=== PATIENT | male | born 1960 | race Caucasian/White ===

== ENCOUNTER → 2017-11-29 | Outpatient (CLI) | payer OTHER ==
[2017-11-29 19:15] LABS: BASO # 0.1 10^3/uL (0.0-0.2); BASO % 0.8 % (0.0-1.0); EOS # 0.2 10^3/uL (0.0-0.50); EOS % 1.6 % (0.0-3.0); HEMATOCRIT 41.3 % (42.0-52.0); IMMATURE GRANULOCYTE % 0.6 % (0-3.0); LYMPH # 3.6 10^3/uL (1.5-4.5); LYMPH % 34.6 % (24.0-44.0); MEAN CORPUSCULAR HGB CONC 33.9 g/dl (32.0-36.5); MEAN CORPUSCULAR VOLUME 91.6 fl (80.0-96.0); MONO # 0.6 10^3/uL (0.0-0.8); MONO % 5.4 % (0.0-5.0); NEUTROPHILS # 5.9 10^3/uL (1.8-7.7); PLATELET COUNT, AUTOMATED 433 10^3/uL (150-450); RED BLOOD COUNT 4.51 10^6/uL (4.30-6.10); RED CELL DISTRIBUTION WIDTH 12.3 % (11.5-14.5); WHITE BLOOD COUNT 10.4 10^3/uL (4.0-10.0)
[2017-11-29 19:42] LABS: ALBUMIN 4.5 GM/DL (3.2-5.2); ALBUMIN/GLOBULIN RATIO 1.32 (1.00-1.93); ALKALINE PHOSPHATASE 78 U/L (45-117); ALT/SGPT 38 U/L (12-78); ANION GAP 6 MEQ/L (8-16); AST/SGOT 20 U/L (7-37); BILIRUBIN,TOTAL 0.6 MG/DL (0.2-1.0); BLOOD UREA NITROGEN 13 MG/DL (7-18); CALCIUM LEVEL 9.3 MG/DL (8.5-10.1); CARBON DIOXIDE LEVEL 31 MEQ/L (21-32); CHLORIDE LEVEL 104 MEQ/L (98-107); CHOLESTEROL LEVEL 187 MG/DL (<200); CHOLESTEROL RISK RATIO 3.978 (<5); CREATININE FOR GFR 1.05 MG/DL (0.70-1.30); ESTIMATED AVERAGE GLUCOSE 97 MG/DL (60-110); GLOMERULAR FILTRATION RATE > 60.0 (>56); GLUCOSE, FASTING 82 MG/DL (70-100); HDL CHOLESTEROL 47 MG/DL (>40); LDL CHOLESTEROL 107.4 MG/DL (<100); NON-HDL-C 140 MG/DL; POTASSIUM SERUM 4.8 MEQ/L (3.5-5.1); PSA SCREENING 3.87 NG/ML (< 4.0); SODIUM LEVEL 141 MEQ/L (136-145); TOTAL PROTEIN 7.9 GM/DL (6.4-8.2); TRIGLYCERIDES LEVEL 163 MG/DL (<150)
[2017-11-29 20:23] LABS: HIV 1&2 SCREEN CENTAUR NEGATIVE (NEGATIVE)
== END ==
LOC: M WUC 16:33
DX: Z00.00 Encounter for general adult medical examination without abnormal findings (principal); Z11.4 Encounter for screening for human immunodeficiency virus [HIV]; Z12.5 Encounter for screening for malignant neoplasm of prostate
CPT/HCPCS: 80053

== ENCOUNTER → 2018-02-10 | Outpatient (REF) | payer OTHER | LOC: M SFHCPLAZ 13:51 | DX: Z12.12 Encounter for screening for malignant neoplasm of rectum (principal) ==

== ENCOUNTER → 2018-06-11 | Outpatient (CLI) | payer OTHER ==
[2018-06-11 13:18] LABS: ANION GAP 6 MEQ/L (8-16); BLOOD UREA NITROGEN 15 MG/DL (7-18); CARBON DIOXIDE LEVEL 28 MEQ/L (21-32); CHLORIDE LEVEL 105 MEQ/L (98-107); CREATININE FOR GFR 0.97 MG/DL (0.70-1.30); GLOMERULAR FILTRATION RATE > 60.0 (>56); GLUCOSE, FASTING 83 MG/DL (70-100); POTASSIUM SERUM 5.1 MEQ/L (3.5-5.1); SODIUM LEVEL 139 MEQ/L (136-145)
[2018-06-11 13:52] LABS: HEPATITIS B SURFACE ANTIBODY NEGATIVE (POSITIVE); HEPATITIS B SURFACE ANTIGEN NEGATIVE (NEGATIVE)
[2018-06-11 14:09] LABS: HIV 1&2 SCREEN CENTAUR NEGATIVE (NEGATIVE)
[2018-06-12 08:06] LABS: HEPATITIS B CORE ANTIBODY IGG Negative (Negative)
== END ==
LOC: M WUC 10:42
DX: Z20.6 Contact with and (suspected) exposure to human immunodeficiency virus [HIV] (principal)
CPT/HCPCS: 86706

== ENCOUNTER → 2018-11-17 | Outpatient (REF) | payer OTHER ==
[2018-11-17 12:00] LABS: BASO % 0.7 % (0.0-1.0); EOS # 0.1 10^3/uL (0.0-0.50); HEMATOCRIT 42.8 % (42.0-52.0); HEMOGLOBIN 14.5 g/dl (13.5-17.5); LYMPH # 2.5 10^3/uL (1.5-4.5); LYMPH % 42.4 % (24.0-44.0); MEAN CORPUSCULAR HEMOGLOBIN 30.8 pg (27.0-33.0); MEAN CORPUSCULAR HGB CONC 33.9 g/dl (32.0-36.5); MEAN CORPUSCULAR VOLUME 90.9 fl (80.0-96.0); MONO # 0.5 10^3/uL (0.0-0.8); MONO % 8.7 % (0.0-5.0); NEUTROPHILS # 2.7 10^3/uL (1.8-7.7); PLATELET COUNT, AUTOMATED 313 10^3/uL (150-450); RED BLOOD COUNT 4.71 10^6/uL (4.30-6.10)
[2018-11-17 12:23] LABS: ALBUMIN 4.4 GM/DL (3.2-5.2); ALT/SGPT 38 U/L (12-78); BILIRUBIN,TOTAL 0.7 MG/DL (0.2-1.0); BLOOD UREA NITROGEN 12 MG/DL (7-18); CARBON DIOXIDE LEVEL 28 MEQ/L (21-32); CHLORIDE LEVEL 105 MEQ/L (98-107); CHOLESTEROL LEVEL 222 MG/DL (<200); CHOLESTEROL RISK RATIO 4.269 (<5); CREATININE FOR GFR 1.05 MG/DL (0.70-1.30); GLOMERULAR FILTRATION RATE > 60.0 (>56); GLUCOSE, FASTING 94 MG/DL (70-100); HDL CHOLESTEROL 52 MG/DL (>40); LDL CHOLESTEROL 141 MG/DL (<100); NON-HDL-C 170 MG/DL; POTASSIUM SERUM 5.1 MEQ/L (3.5-5.1); SODIUM LEVEL 138 MEQ/L (136-145); TOTAL PROTEIN 7.2 GM/DL (6.4-8.2); TRIGLYCERIDES LEVEL 143 MG/DL (<150)
[2018-11-17 12:24] LABS: HEMOGLOBIN A1c 5.1 %
[2018-11-17 12:58] LABS: HEPATITIS C VIRUS ABY INDEX 0.1 INDEX (<0.8); HIV 1&2 SCREEN CENTAUR NEGATIVE (NEGATIVE)
== END ==
LOC: M SFHCPLAZ 08:27
PROVIDERS: ATTEND Family Medicine
DX: Z00.00 Encounter for general adult medical examination without abnormal findings (principal); Z11.59 Encounter for screening for other viral diseases; Z11.4 Encounter for screening for human immunodeficiency virus [HIV]; Z12.5 Encounter for screening for malignant neoplasm of prostate
CPT/HCPCS: 80053; 80061; 83036; 85025; 86803; 87389; G0103

== ENCOUNTER → 2018-12-03 | Outpatient (REF) | payer OTHER ==
[2018-12-03 14:15] LABS: PHOSPHORUS LEVEL 3.5 MG/DL (2.5-4.9)
[2018-12-03 15:03] LABS: HIV 1&2 SCREEN CENTAUR NEGATIVE (NEGATIVE)
== END ==
LOC: M SFHCPLAZ 11:22
PROVIDERS: ATTEND Family Medicine
DX: Z20.2 Contact with and (suspected) exposure to infections with a predominantly sexual mode of transmission (principal); Z51.81 Encounter for therapeutic drug level monitoring; Z12.5 Encounter for screening for malignant neoplasm of prostate
CPT/HCPCS: 36415; 84100; 86780; 86803; 87389; G0103

== ENCOUNTER → 2019-06-17 | Outpatient (REF) | payer OTHER ==
[2019-06-17 11:37] LABS: BASO % 0.4 % (0.0-1.0); EOS # 0.1 10^3/uL (0.0-0.5); EOS % 1.8 % (0.0-3.0); HEMATOCRIT 42.4 % (42.0-52.0); HEMOGLOBIN 14.3 g/dl (13.5-17.5); LYMPH # 2.5 10^3/uL (1.5-5.0); LYMPH % 34.1 % (24.0-44.0); MEAN CORPUSCULAR HEMOGLOBIN 30.8 pg (27.0-33.0); MEAN CORPUSCULAR HGB CONC 33.7 g/dl (32.0-36.5); MEAN CORPUSCULAR VOLUME 91.4 fl (80.0-96.0); MONO # 0.6 10^3/uL (0.0-0.8); MONO % 8.7 % (0.0-5.0); NEUTROPHILS % 54.7 % (36.0-66.0); PLATELET COUNT, AUTOMATED 306 10^3/uL (150-450); RED BLOOD COUNT 4.64 10^6/uL (4.30-6.10); WHITE BLOOD COUNT 7.4 10^3/uL (4.0-10.0)
[2019-06-17 12:11] LABS: ALBUMIN 4.1 GM/DL (3.2-5.2); ALT/SGPT 28 U/L (12-78); BILIRUBIN,TOTAL 0.5 MG/DL (0.2-1.0); BLOOD UREA NITROGEN 9 MG/DL (7-18); CALCIUM LEVEL 8.6 MG/DL (8.5-10.1); CARBON DIOXIDE LEVEL 28 MEQ/L (21-32); CHLORIDE LEVEL 106 MEQ/L (98-107); CREATININE FOR GFR 1.02 MG/DL (0.70-1.30); GLOMERULAR FILTRATION RATE > 60.0 (>56); GLUCOSE, FASTING 91 MG/DL (70-100); POTASSIUM SERUM 4.5 MEQ/L (3.5-5.1); SODIUM LEVEL 140 MEQ/L (136-145); TOTAL PROTEIN 7.4 GM/DL (6.4-8.2)
[2019-06-17 12:55] LABS: HIV 1&2 SCREEN CENTAUR NEGATIVE (NEGATIVE)
== END ==
LOC: M SFHCPLAZ 10:07
PROVIDERS: ATTEND Nurse Practitioner Adult Health
DX: Z51.81 Encounter for therapeutic drug level monitoring (principal); Z86.2 Personal history of diseases of the blood and blood-forming organs and certain disorders involving the immune mechanism; Z20.2 Contact with and (suspected) exposure to infections with a predominantly sexual mode of transmission; E78.00 Pure hypercholesterolemia, unspecified

== ENCOUNTER → 2020-07-11 | Outpatient (REF) | payer OTHER | LOC: M LAB REF 14:20 | PROVIDERS: ATTEND Dermatology | DX: D49.2 Neoplasm of unspecified behavior of bone, soft tissue, and skin (principal) ==

== ENCOUNTER → 2021-04-20 | Outpatient (CLI) | payer OTHER ==
[~2021-04-20] MED LIST: ISOVUE-370 76% 100ML VIAL As Ordered ONE
--- NOTE | 2021-04-20 18:15 | REP ---
INDICATION: PROSTATE CA, POST OP PAIN. COMPARISON: None currently available TECHNIQUE: Axial contrast-enhanced images from the lung bases to the pubic symphysis using 100 cc Isovue 370 intravenous contrast material. Coronal and sagittal reformations obtained along with delayed images of the abdomen. This CT examination was performed using the following dose reduction techniques: Automated exposure control, adjustment of mA and/or kv according to the patient's size, and the use of iterative reconstruction technique. FINDINGS: Liver includes small hypodensity along the posterior aspect of the right lobe measuring roughly 1.3 cm and may represent hemangioma. Spleen, pancreas, gallbladder, bilateral adrenal glands and kidneys are normal. The enteric system is without obstruction or acute inflammatory process. Scattered sigmoid diverticula noted without acute diverticulitis. Pelvis demonstrates collapsed bladder and findings to suggest recent prostate resection. There is a 4 cm cystic lesion along the right hemipelvis which may represent lymph node along with smaller possible pelvic lymph nodes measuring up to 8 mm maximal diameter. No further significant adenopathy identified. No ascites. No free air. Abdominal aorta and vasculature appear normal. Musculoskeletal structures are intact and without acute osseous abnormality. Lung bases are clear. IMPRESSION: 1. Findings consistent with prior prostate resection. 4 cm cystic lesion along the right hemipelvis which may represent lymph node or small seroma as well as small pelvic lymph nodes up to 8 mm noted. No ascites. 2. Diverticulosis without acute diverticulitis. 3. Small hepatic lesion likely representing hemangioma may warrant ultrasound follow-up. <Electronically signed by Salas Zheng > 04/20/21 [id number]
== END ==
LOC: M RAD 08:18
DX: C61 Malignant neoplasm of prostate (principal); G89.18 Other acute postprocedural pain; K57.30 Diverticulosis of large intestine without perforation or abscess without bleeding; K76.89 Other specified diseases of liver
CPT/HCPCS: 74177; Q9967

== ENCOUNTER → 2021-05-25 | Outpatient (REF) | payer OTHER ==
[2021-05-25 13:30] LABS: APPEARANCE, URINE CLEAR (CLEAR); BACTERIA, URINE AUTO NEGATIVE (NEGATIVE); BILIRUBIN, URINE AUTO NEGATIVE (NEGATIVE); BLOOD, URINE BLOOD NEGATIVE (NEGATIVE); COLOR, URINE YELLOW (YELLOW); GLUCOSE, URINE (UA) AUTO NEGATIVE (NEGATIVE); KETONE, URINE AUTO NEGATIVE (NEGATIVE); LEUKOCYTE ESTERASE, URINE AUTO NEGATIVE (NEGATIVE); NITRITE, URINE AUTO NEGATIVE (NEGATIVE); PROTEIN, URINE AUTO NEGATIVE (NEGATIVE); RBC, URINE AUTO 0 /HPF (0-3); SPECIFIC GRAVITY URINE AUTO 1.011 (1.002-1.035); SQUAMOUS EPITHELIAL CELL UR AU 0 /HPF (0-6); UROBILINOGEN, URINE AUTO 0.2 mg/dL (0.0-2.0); WBC, URINE AUTO 0 /HPF (0-3)
== END ==
LOC: M SMT 12:58
PROVIDERS: ATTEND Urology
DX: R39.9 Unspecified symptoms and signs involving the genitourinary system (principal)

== ENCOUNTER → 2021-07-11 | Outpatient (CLI) | payer OTHER ==
[~2021-07-11] MED LIST changes: +ACET-683 PO; +AMBI5TAB PO; +AMIT25TA17 PO; +BUPR15TASR PO; +CIAL5TAB PO; +EMTR1TAB16 PO; +GABA-282; +GNP1000C11 PO; -ISOVUE-370 76% 100ML VIAL As Ordered ONE; +LAMI200T PO; +LORA1TAB4 PO; +MELO15TA28 PO; +MM S100C PO; +MULT1TAB8 PO; +OSTE1TAB2 PO; +TIZA2TA
--- NOTE | 2021-07-11 17:24 | RADONC.CN ---
Radiation Oncology Hx/Consult Radiation Oncology Consult Date of Service: Jul 11, 2021 Pt Identifier Sebastian Noel is a 60 year old male with a history of superficial bladder cancer s/p TURBT remotely, and more recently prostate cancer, [id number] [place] 4+3+7 s/p RALP on 03/22/21@ [facility]. His post-op PSA leena to 1.3 pm . He underwent PSMA PET-CT on 06/07/21 which revealed activity in the prostate bed as well as in BL external iliac nodes. He is seen today for consideration of adjuvant EBRT. He has declined adjuvant ADT. Diagnosis/Treatment History Oncologic History 10/2020 Elevated PSA cT2b 11/23/20 MRI prostate with multiple foci of PIRADS 4 and 5 12/2020 PSA 7.22 12/23/20 cores+ [place] 4+8=8 01/30/21 Bone scan CTs negative 03/22/21 RALP pT3b [place] 4+3=7 05/2021 Post-op PSA 1.0 06/07/21 PMSA PET-CT with 2 foci of uptake posterior to the bladder, as well as in BL external iliac LN 06/16/21 PSA 1.3 IPSS 33 BERNABE 1 Interval History Sebastian reports he has some chronic pelvic pain in the right testicle and groin predating diagnosis, as well as in the low back on the right, with associated feeling of leg weakness. He reports significant irritative voiding symptoms consisting mostly of frequency, and problems with his stream. He has complete ED. He has regular bowel movements, no blood. No bleeding in urine. No incontinence. Past Medical History: Anxiety Depression Dissociative identity disorder Post-operative neurogenic bladder PTSD Past Surgical History: TURBT 1999, 2000 Family History: Paternal grandmother breast cancer Paternal grandfather prostate cancer Social History: Never smoker Drinks 1 drink daily Allergies / Meds Allergies: Coded Allergies: erythromycin base (Verified Allergy, Unknown, 07/11/21) meperidine (Verified Allergy, Unknown, 07/11/21) metoclopramide (Verified Allergy, Unknown, 07/11/21) prochlorperazine (Verified Allergy, Unknown, 07/11/21) sulfamethoxazole (Verified Allergy, Unknown, 07/11/21) trimethoprim (Verified Allergy, Unknown, 07/11/21) Home Meds Reported Medications Vit D3-Vit K/Berberine/Hops (Ostera Tablet) 1 Each Tablet, 1 TAB PO, TAB 07/11/21 Multivitamin (Multi-Vitamin Daily) 1 Each Tablet, 1 TAB PO, TAB 07/11/21 Flaxseed Oil (Flaxseed) 1,000 Mg Capsule, 2 CAP PO, CAP 07/11/21 Docusate Sodium (Stool Softener) 100 Mg Capsule, 2 CAP PO DAILY for 30 Days, #60 CAP 07/11/21 Zolpidem Tartrate (Ambien) 5 Mg Tablet, 5 MG PO QPMP PRN for sleep MDD 1 T ablet(s) for 30 Days, #30 TAB 07/11/21 Tadalafil (Cialis) 5 Mg Tablet, 1 TAB PO DAILY for erectile dysfunction for 30 Days, #30 TAB 07/11/21 Bupropion HCl (Bupropion HCl Sr) 150 Mg Tab.er.12h, 3 TAB PO DAILY for 30 Days, #30 TAB 07/11/21 Amitriptyline HCl (Amitriptyline HCl) 25 Mg Tablet, 1 TAB PO QPM for 30 Days, #30 TAB 07/11/21 Lorazepam (Lorazepam) 1 Mg Tablet, 0.5 TAB PO TID PRN for ANXIETY/AGITATION, #5 TAB Use sublingually if unable to swallow MDD = 3 mg 07/11/21 Emtricitabine/Tenofovir (Truvada 200 mg-300 mg Tablet) 1 Each Tablet, 1 TAB PO DAILY for 30 Days, #30 TAB 07/11/21 Lamotrigine (Lamictal Xr) 200 Mg Tab.er.24, 1 TAB PO DAILY for 30 Days, #30 TAB 07/11/21 Acetaminophen (Acetaminophen) 500 Mg Tablet, 1 TAB PO Q6H for fever for 15 Days, #60 TAB 07/11/21 Meloxicam (Meloxicam) 15 Mg Tablet, 1 TAB PO DAILY for 30 Days, #30 TAB 07/11/21 Tizanidine HCl (Tizanidine HCl) 2 Mg Tablet, 1 TAB TID 07/11/21 Gabapentin (Gabapentin) 300 Mg Capsule, 1 TAB TID 07/11/21 Review of Systems Constitutional: Denies: Fatigue, Weight Loss Eyes: Denies: Pain HEENT: Denies: Head Aches Skin: Denies: Rash Gastrointestinal: Denies: Abdominal Pain, Hematochezia Genitourinary: Reports: Frequency, Retention; Denies: Dysuria, Incontinence, Hematuria Musculoskeletal: Reports: Back pain, Leg pain; Denies: Neck pain Neurological: Reports: Weakness; Denies: Numbness Vital Signs Ht 72" Wt 200 lbs BMI 27 T 96.8 P 70 RR 18 BP 132/88 O2 100% Pain 2 Fatigue 2 General Exam: Alert, Cooperative, No Acute Distress Eye Exam: PERRLA, EOMI ENT EXAM: Atraumatic Neck Exam: Supple Chest Exam: Clear to auscultation Heart Exam: Rate Normal Abdomen Exam: Soft Extremity Exam: Negative: Edema Skin Exam: Nl turgor and temperature Neuro Exam: Normal Gait, Normal Speech, Cranial Nerves 3-12 NL Psych Exam: Mental status NL Other Physical Findings Deferred [facility] Diagnostic and Laboratory Diagnostic Review Radiologic images, relevant labs and pathology reports were personally reviewed and discussed with Mr. Noel. Assessment and Plan Impression Mr. Noel is a 60 year old male with a history of superficial bladder cancer s/p TURBT remotely, and more recently prostate cancer, [id number] [place] 4+3+7 s/p RALP on 03/22/21@ [facility]. His post-op PSA leena to 1.3 pm . He underwent PSMA PET-CT on 06/07/21 which revealed activity in the prostate bed as well as in BL external iliac nodes. He is seen today for consideration of adjuvant EBRT. He has declined adjuvant ADT. Stage Prostate cancer [id number] [place] 4+3=7 post-op PSA to 1.3 stage KIANNA Performance Status ECOG 1 Plan We had an extensive discussion with Mr. Noel regarding the diagnosis at hand and available therapeutic options. He has significant urinary bother as well as complete ED post-RALP. He has previously discussed ADT with both his medical oncologist in [facility] as well as Dr. Hayes, which is [id number] minimum 2 years of therapy. He politely declined this. For EBRT I recommend he undergo repeat pelvic MRI first for treatment planning p urposes as well as evaluation of his pelvic pain. He has a prior MRI prostate which is a narrower FOV, than a standard study, and does not reflect the post- prostatectomy status. This can occur around the time of his cystoscopy with Dr. Hayes on 08/03/21. I suspect (having not acquired the DICOM file yet) that the PSMA avid lesions in the posterior bladder are reflective of extracapsular disease, not invading the bladder, these lesions would be covered within the EBRT field. I recommend 68.4 Gy in 38 fractions to the prostate bed with SIB to the involved nodes and nodules. I will also treat the intervening lymphatics to lower dose. He agreed tentatively to EBRT after his cystoscopy and MRI pelvis. We can revisit ADT ongoing and perhaps he can be swayed to trial it. We discussed the logistics of receiving radiation therapy in detail including the need for a 1-time planning session. This can occur in early August 2021. We reviewed the side effects of EBRT including irritative voiding symptoms, diar romelia, and late rectal bleeding. After discussing the risks, benefits and alternatives to radiation therapy, Mr. Noel was amenable to pursuing radiotherapy. All questions were answered to the patient's satisfaction. We instructed the patient that if there were any questions,concerns or changes in clinical status in the interim to contact us. Recommendations EBRT as described above MRI pelvis with thin-slice T1+C for RT planning Obtain DICOM file of PSMA-PET-CT from 06/07/21 [facility] Simulation early August 2020 Revisit ADT Billing Statement Total time of [54] minutes was spent preparing for the visit [4], obtaining HPI [10], examining the patient [2], reviewing diagnostic tests [7], discussing management options [19], coordinating care [4], and writing this note [8]. LOYD NUNEZ MD Jul 11, 2021 17:24
== END ==
LOC: M ONCR 13:29
PROVIDERS: ATTEND General Practice
DX: C61 Malignant neoplasm of prostate (principal); Z85.51 Personal history of malignant neoplasm of bladder; Z88.2 Allergy status to sulfonamides; Z88.1 Allergy status to other antibiotic agents; Z79.899 Other long term (current) drug therapy

== ENCOUNTER → 2021-07-24 | Outpatient (CLI) | payer OTHER ==
[~2021-07-24] MED LIST changes: +DOCU250C7 PO; -GABA-282; +GABA-282 PO; +LAMI1TAB8 PO; +RELP40TA PO; +SUPETAB44 PO; -TIZA2TA; +TIZA2TA PO
== END ==
LOC: M PLALAB 13:06
PROVIDERS: ATTEND Urology
DX: Z01.818 Encounter for other preprocedural examination (principal); C61 Malignant neoplasm of prostate; N39.0 Urinary tract infection, site not specified

== ENCOUNTER → 2021-07-26 | Outpatient (REF) | LOC: M LABSMTC 09:38 | PROVIDERS: ATTEND Pediatrics | DX: Z20.828 Contact with and (suspected) exposure to other viral communicable diseases (principal) ==

== ENCOUNTER → 2021-07-31 | Outpatient (CLI) | payer OTHER | LOC: M LABSMTC 10:02 | PROVIDERS: ATTEND Anesthesiology | DX: Z01.812 Encounter for preprocedural laboratory examination (principal); Z20.822 Contact with and (suspected) exposure to COVID-19 ==

== ENCOUNTER 2021-08-03 08:34 | Day surgery (SDC) | payer OTHER ==
[~2021-08-03] VITALS: Ht 182.9 cm; Wt 90.2 kg
[~2021-08-03 08:34] MED LIST changes: +LIDOCAINE 1% MDV 20ML VIAL SQ PRN; +LR 1,000 ML IV ONE; +ceFAZolin SOD 2 GM in IV 1 EA IV ONE
[2021-08-03] MEDS ORDERED: dexameTHASONE 4 MG/ML 1ML VIAL (J1100 PER 1MG) As Ordered ONE (10:03)
[2021-08-03] MEDS ORDERED: propofoL 200 MG/20 ML VIAL As Ordered ONE (10:03)
[2021-08-03] MEDS ORDERED: ONDANSETRON 4MG/2ML VIAL As Ordered ONE (10:03)
[2021-08-03] MEDS ORDERED: fentaNYL 100 MCG/2 ML INJECTION (J3010) As Ordered ONE (10:03)
[2021-08-03] MEDS ORDERED: MIDAZOLAM INJ 2MG/2ML VIAL (J2250 PER 1MG) As Ordered ONE (10:03)
[2021-08-03] MEDS ORDERED: LIDOCAINE 2% 100MG/5ML SDV (FOR ANES.) As Ordered ONE (10:03)
[2021-08-03] MEDS ORDERED: ACETAMINOPHEN 1000MG 100ML IV BTL (OFIRMEV) (J0131 PER 10MG) As Ordered ONE (10:04)
[2021-08-03] MEDS ORDERED: ACETAMINOPHEN TAB 650MG DOSE (2X325MG) PO PRN (10:55)
[2021-08-03] MEDS ORDERED: oxyCODONE 5MG TAB PO PRN (10:55)
[2021-08-03] MEDS ORDERED: fentaNYL 100 MCG/2 ML INJECTION (J3010) IV PRN (10:55)
[2021-08-03] MEDS ORDERED: ONDANSETRON 4MG/2ML VIAL IV PRN (10:55)
--- NOTE | 2021-08-03 11:16 | RO ---
OPERATIVE NOTE DATE OF OPERATION: 08/03/2021 PREOPERATIVE DIAGNOSES: History of bladder cancer, possible bladder mass. POSTOPERATIVE DIAGNOSIS: History of bladder cancer. PROCEDURE: Cystoscopy. SURGEON: Brien Hayes MD IT APPLICATION SUPPORT ANALYST: None. ANESTHESIA: General. OPERATIVE INDICATIONS: This is a 60-year-old male with a history of bladder cancer, status post transurethral resection of bladder tumors several years ago. He also recently underwent a robotic radical prostatectomy for treatment of prostate cancer. Based on postoperative labs, he appears to have residual prostate cancer. A recent PET scan demonstrated what appeared to be potentially prostate cancer metastatic sites in the posterior wall of his bladder. He is brought to the operating room to investigate this. DESCRIPTION OF PROCEDURE: The patient was brought to the operating room and general anesthesia was induced. Prophylactic antibiotics were infused. He was placed in the dorsal lithotomy position, prepped and draped in the usual sterile fashion. A rigid cystocope was inserted in the urethral meatus and advanced into the bladder. The bladder was then thoroughly examined both with 30 and 70 degree lenses. There were no abnormalities seen on the posterior bladder wall. All morrison of the bladder appeared to be within normal limits. No masses were seen. Both ureteral orifices effluxed clear urine. At the level of the bladder neck at six o'clock, there were two lumps of tissue that could either be edema from his anastomosis or potentially residual prostate tissue. Given the location at the bladder neck the decision was made not to biopsy this area. At this point, the bladder was emptied of all fluids and the cystoscope was removed and this marked the conclusion of the procedure. The patient was then taken out of the dorsal lithotomy position, awakened from anesthesia and transported to the recovery room in stable condition. ESTIMATED BLOOD LOSS: 5 mL COMPLICATIONS: None. SPECIMENS: None. PLAN: The patient will proceed as planned for salvage radiation therapy. I will have him follow up with me approximately 1 month or after he completes his radiation treatment. HERNÁN
[2021-08-03 13:24] VITALS: BP 140/78
== END 2021-08-03 13:42 | disposition home or self-care (01) ==
LOC: M SDC 08:34
PROVIDERS: ATTEND Urology
DX: Z85.51 Personal history of malignant neoplasm of bladder (principal); C61 Malignant neoplasm of prostate; G43.909 Migraine, unspecified, not intractable, without status migrainosus; F41.9 Anxiety disorder, unspecified; F32.9 Major depressive disorder, single episode, unspecified; Z79.899 Other long term (current) drug therapy; Z88.1 Allergy status to other antibiotic agents; Z88.8 Allergy status to other drugs, medicaments and biological substances
CPT/HCPCS: 52000; J0131; J0690; J1100; J2250; J2405; J3010

== ENCOUNTER → 2021-08-08 | Outpatient (REF) | payer OTHER ==
[~2021-08-08] MED LIST changes: -LIDOCAINE 1% MDV 20ML VIAL SQ PRN; -LR 1,000 ML IV ONE; -ceFAZolin SOD 2 GM in IV 1 EA IV ONE
== END ==
LOC: M LAB REF 14:15
PROVIDERS: ATTEND Nurse Practitioner Family
DX: D22.60 Melanocytic nevi of unspecified upper limb, including shoulder (principal)

== ENCOUNTER → 2021-08-21 | Outpatient (CLI) | payer OTHER ==
[~2021-08-21] MED LIST changes: +PROHANCE 279.3MG/ML 15ML VIAL As Ordered ONE; +PROHANCE 279.3MG/ML 5ML VIAL As Ordered ONE
== END ==
LOC: M RAD 07:23
PROVIDERS: ATTEND General Practice
DX: C61 Malignant neoplasm of prostate (principal); K57.30 Diverticulosis of large intestine without perforation or abscess without bleeding; N32.89 Other specified disorders of bladder
CPT/HCPCS: 72197; A9576

== ENCOUNTER → 2021-09-06 | Outpatient (CLI) | payer OTHER ==
[~2021-09-06] MED LIST changes: -PROHANCE 279.3MG/ML 15ML VIAL As Ordered ONE; +PROHANCE 279.3MG/ML 15ML VIAL ONE; -PROHANCE 279.3MG/ML 5ML VIAL As Ordered ONE; +PROHANCE 279.3MG/ML 5ML VIAL ONE
== END ==
LOC: M PLAIMG 08:12
DX: R29.818 Other symptoms and signs involving the nervous system (principal); M51.26 Other intervertebral disc displacement, lumbar region; M51.36 Other intervertebral disc degeneration, lumbar region; M51.27 Other intervertebral disc displacement, lumbosacral region
CPT/HCPCS: 72158; A9576

== ENCOUNTER → 2021-11-01 | Outpatient (CLI) | payer OTHER ==
[~2021-11-01] MED LIST changes: -PROHANCE 279.3MG/ML 15ML VIAL ONE; -PROHANCE 279.3MG/ML 5ML VIAL ONE
== END ==
LOC: M ONCR 11:46
PROVIDERS: ATTEND General Practice
DX: C61 Malignant neoplasm of prostate (principal); R97.21 Rising PSA following treatment for malignant neoplasm of prostate; R10.30 Lower abdominal pain, unspecified; M79.604 Pain in right leg; M79.605 Pain in left leg

== ENCOUNTER → 2022-03-04 | Outpatient (CLI) | payer OTHER ==
[~2022-03-04] MED LIST changes: +TADA20TA
== END ==
LOC: M LABSMTC 09:30
PROVIDERS: ATTEND Anesthesiology
DX: Z01.812 Encounter for preprocedural laboratory examination (principal); Z20.822 Contact with and (suspected) exposure to COVID-19

== ENCOUNTER → 2022-03-07 | Outpatient (CLI) | payer OTHER | LOC: M ONCR 10:29 | PROVIDERS: ATTEND General Practice | DX: C61 Malignant neoplasm of prostate (principal); N39.44 Nocturnal enuresis; K59.00 Constipation, unspecified; R10.2 Pelvic and perineal pain; R93.89 Abnormal findings on diagnostic imaging of other specified body structures; R97.21 Rising PSA following treatment for malignant neoplasm of prostate; Z85.51 Personal history of malignant neoplasm of bladder; Z79.1 Long term (current) use of non-steroidal anti-inflammatories (NSAID); Z79.899 Other long term (current) drug therapy; Z88.1 Allergy status to other antibiotic agents; Z88.2 Allergy status to sulfonamides; Z88.5 Allergy status to narcotic agent; Z88.8 Allergy status to other drugs, medicaments and biological substances ==

== ENCOUNTER 2022-03-09 06:08 | Day surgery (SDC) | payer OTHER ==
[~2022-03-09] VITALS: Ht 182.9 cm; Wt 83.9 kg
[~2022-03-09 06:08] MED LIST changes: +ceFAZolin SOD 2 GM in IV 1 EA IV ONE
[2022-03-09] MEDS ORDERED: LR 1,000 ML IV SCH ×2 (06:55→08:25)
[2022-03-09] MEDS ORDERED: LIDOCAINE 2% 100MG/5ML SDV (FOR ANES.) As Ordered ONE (07:20)
[2022-03-09] MEDS ORDERED: MIDAZOLAM INJ 2MG/2ML VIAL (J2250 PER 1MG) As Ordered ONE (07:20)
[2022-03-09] MEDS ORDERED: fentaNYL 100 MCG/2 ML INJECTION As Ordered ONE (07:20)
[2022-03-09] MEDS ORDERED: propofoL 200 MG/20 ML VIAL As Ordered ONE (07:20)
[2022-03-09] MEDS ORDERED: LIDOCAINE 2% 5ML JELLY UROJET As Ordered ONE (07:27)
[2022-03-09] MEDS ORDERED: traMADol 50 MG TAB PO ONE (08:25)
[2022-03-09] MEDS ORDERED: fentaNYL 100 MCG/2 ML INJECTION IV PRN (08:25)
[2022-03-09] MEDS ORDERED: MORPHINE 2 MG/ML 1ML VIAL IV PRN (08:25)
[2022-03-09] MEDS ORDERED: ONDANSETRON 4MG 2ML VIAL IV PRN (08:25)
[2022-03-09] MEDS ORDERED: KETOROLAC 30 MG/ML 1ML VIAL IV ONE (10:15)
[2022-03-09 10:25] VITALS: BP 126/69
== END 2022-03-09 10:44 | disposition home or self-care (01) ==
LOC: M SDC 06:08
PROVIDERS: ATTEND Urology
DX: R39.9 Unspecified symptoms and signs involving the genitourinary system (principal); C61 Malignant neoplasm of prostate; Z85.51 Personal history of malignant neoplasm of bladder; K57.92 Diverticulitis of intestine, part unspecified, without perforation or abscess without bleeding; G43.909 Migraine, unspecified, not intractable, without status migrainosus; F43.10 Post-traumatic stress disorder, unspecified; F41.9 Anxiety disorder, unspecified; F32.A Depression, unspecified; Z79.899 Other long term (current) drug therapy; Z88.1 Allergy status to other antibiotic agents; Z88.2 Allergy status to sulfonamides; Z88.8 Allergy status to other drugs, medicaments and biological substances
CPT/HCPCS: 52000; J0690; J1885; J2250; J3010

== ENCOUNTER → 2022-04-04 | Outpatient (CLI) | payer OTHER ==
[~2022-04-04] MED LIST changes: +HYDR4TAB PO; +LIDOCAINE 1% MDV 20ML VIAL As Ordered ONE; +TRAM50TA2 PO; -ceFAZolin SOD 2 GM in IV 1 EA IV ONE
[2022-04-04 13:30] VITALS: BP 116/70
== END ==
LOC: M IRPRO 11:43
PROVIDERS: ATTEND General Practice
DX: C61 Malignant neoplasm of prostate (principal)

== ENCOUNTER → 2022-04-12 | Outpatient (CLI) | payer OTHER ==
[~2022-04-12] MED LIST changes: -LIDOCAINE 1% MDV 20ML VIAL As Ordered ONE
== END ==
LOC: M ONCR 12:45
PROVIDERS: ATTEND General Practice
DX: C61 Malignant neoplasm of prostate (principal); R97.20 Elevated prostate specific antigen [PSA]; Z85.51 Personal history of malignant neoplasm of bladder; Z79.1 Long term (current) use of non-steroidal anti-inflammatories (NSAID); Z79.899 Other long term (current) drug therapy; Z88.1 Allergy status to other antibiotic agents; Z88.2 Allergy status to sulfonamides; Z88.8 Allergy status to other drugs, medicaments and biological substances

== ENCOUNTER → 2022-04-16 | Outpatient (CLI) | payer OTHER ==
[~2022-04-16] MED LIST changes: +SENO8.6T5
== END ==
LOC: M LABSMTC 09:51
PROVIDERS: ATTEND Anesthesiology
DX: Z01.818 Encounter for other preprocedural examination (principal); Z11.52 Encounter for screening for COVID-19

== ENCOUNTER 2022-04-20 07:44 | Day surgery (SDC) | payer OTHER ==
[~2022-04-20] VITALS: Ht 182.9 cm; Wt 80.3 kg
[~2022-04-20 07:44] MED LIST changes: +NS 1,000 ML IV ONE
[2022-04-20 09:44] VITALS: BP 106/69
== END 2022-04-20 10:14 | disposition home or self-care (01) ==
LOC: M OPP 07:44
PROVIDERS: ATTEND Internal Medicine Gastroenterology
DX: Z12.11 Encounter for screening for malignant neoplasm of colon (principal); K57.30 Diverticulosis of large intestine without perforation or abscess without bleeding; K64.4 Residual hemorrhoidal skin tags; K64.8 Other hemorrhoids; Z79.891 Long term (current) use of opiate analgesic; Z79.899 Other long term (current) drug therapy; Z88.1 Allergy status to other antibiotic agents; Z88.5 Allergy status to narcotic agent; Z88.8 Allergy status to other drugs, medicaments and biological substances; C61 Malignant neoplasm of prostate; Z85.51 Personal history of malignant neoplasm of bladder; F32.9 Major depressive disorder, single episode, unspecified; F41.9 Anxiety disorder, unspecified; F43.10 Post-traumatic stress disorder, unspecified; G43.909 Migraine, unspecified, not intractable, without status migrainosus

== ENCOUNTER → 2022-04-24 | Outpatient (CLI) | payer OTHER ==
[~2022-04-24] VITALS: Ht 182.9 cm; Wt 190.2 kg
[~2022-04-24] MED LIST changes: -NS 1,000 ML IV ONE
[2022-04-24 15:28] VITALS: BP 127/80
== END ==
LOC: M PAL 14:22
PROVIDERS: ATTEND Nurse Practitioner Adult Health
DX: C61 Malignant neoplasm of prostate (principal); Z85.51 Personal history of malignant neoplasm of bladder; C79.51 Secondary malignant neoplasm of bone; Z51.5 Encounter for palliative care; Z66 Do not resuscitate; G89.3 Neoplasm related pain (acute) (chronic); R39.15 Urgency of urination; R39.12 Poor urinary stream; K59.00 Constipation, unspecified; Z88.1 Allergy status to other antibiotic agents; Z88.2 Allergy status to sulfonamides; Z88.8 Allergy status to other drugs, medicaments and biological substances; Z79.899 Other long term (current) drug therapy

== ENCOUNTER → 2022-04-26 | Outpatient (CLI) | payer OTHER ==
[~2022-04-26] MED LIST changes: +PROHANCE 279.3MG/ML 15ML VIAL ONE
== END ==
LOC: M PLAIMG 11:53
PROVIDERS: ATTEND Anesthesiology Pain Medicine
DX: R53.1 Weakness (principal); M79.669 Pain in unspecified lower leg
CPT/HCPCS: 72156; 72157; A9576

== ENCOUNTER → 2022-05-22 | Outpatient (CLI) | payer OTHER ==
[~2022-05-22] MED LIST changes: -PROHANCE 279.3MG/ML 15ML VIAL ONE
== END ==
LOC: M PAL 11:01
PROVIDERS: ATTEND Nurse Practitioner Adult Health
DX: C67.9 Malignant neoplasm of bladder, unspecified (principal); C61 Malignant neoplasm of prostate; G89.3 Neoplasm related pain (acute) (chronic); R10.30 Lower abdominal pain, unspecified; R39.198 Other difficulties with micturition; K59.89 Other specified functional intestinal disorders; N50.82 Scrotal pain; M79.661 Pain in right lower leg; M79.662 Pain in left lower leg; Z51.5 Encounter for palliative care; Z66 Do not resuscitate; Z79.899 Other long term (current) drug therapy; Z88.1 Allergy status to other antibiotic agents; Z88.2 Allergy status to sulfonamides; Z88.5 Allergy status to narcotic agent; Z79.891 Long term (current) use of opiate analgesic; Z92.21 Personal history of antineoplastic chemotherapy

== ENCOUNTER 2022-06-04 12:50 | Outpatient (RCR) | payer OTHER ==
[~2022-06-04 12:50] MED LIST changes: +OXYB-54 PO
[2022-06-05] MEDS ORDERED: OXYC-517 PO (11:45)
== END 2022-06-04 23:59 | disposition home or self-care (01) ==
LOC: M ONCR 12:50
PROVIDERS: ATTEND General Practice
DX: C61 Malignant neoplasm of prostate (principal)

== ENCOUNTER → 2022-06-05 | Outpatient (CLI) | payer OTHER ==
[~2022-06-05] VITALS: Ht 182.9 cm; Wt 85.7 kg
[~2022-06-05] MED LIST changes: +OXYC-517 PO
[2022-06-05 11:50] VITALS: BP 121/71
== END ==
LOC: M PAL 11:16
PROVIDERS: ATTEND Nurse Practitioner Adult Health
DX: C67.9 Malignant neoplasm of bladder, unspecified (principal); C61 Malignant neoplasm of prostate; G89.3 Neoplasm related pain (acute) (chronic); R39.198 Other difficulties with micturition; Z92.21 Personal history of antineoplastic chemotherapy; Z79.891 Long term (current) use of opiate analgesic; Z88.5 Allergy status to narcotic agent; Z88.1 Allergy status to other antibiotic agents; Z79.899 Other long term (current) drug therapy; Z51.5 Encounter for palliative care; Z66 Do not resuscitate

== ENCOUNTER 2022-06-08 12:34 | Outpatient (RCR) | payer OTHER ==
[2022-06-08] MEDS ORDERED: FLOM0.4C39 PO (13:14)
[2022-06-12] MEDS ORDERED: OXYC-517 PO (08:26)
[2022-06-25] MEDS ORDERED: DEXA4TA PO (17:02)
== END 2022-07-04 ==
LOC: M ONCR 12:34
PROVIDERS: ATTEND General Practice
DX: C61 Malignant neoplasm of prostate (principal)

== ENCOUNTER → 2022-07-10 | Outpatient (CLI) | payer OTHER ==
[~2022-07-10] MED LIST changes: +DEXA4TA PO; +FLOM0.4C39 PO; +OXYB10TA23 PO
== END ==
LOC: M ONCR 13:16
PROVIDERS: ATTEND General Practice
DX: C61 Malignant neoplasm of prostate (principal); M79.661 Pain in right lower leg; M79.662 Pain in left lower leg; M79.641 Pain in right hand; M79.642 Pain in left hand; N48.89 Other specified disorders of penis; R35.1 Nocturia; R97.21 Rising PSA following treatment for malignant neoplasm of prostate; Z92.3 Personal history of irradiation

== ENCOUNTER → 2022-07-17 | Outpatient (CLI) | payer OTHER ==
[~2022-07-17] VITALS: Ht 182.9 cm; Wt 86.6 kg
[~2022-07-17] MED LIST changes: -SENO8.6T5; +SENO8.6T5 PO
[2022-07-17 13:50] VITALS: BP 117/74
== END ==
LOC: M PAL 13:41
PROVIDERS: ATTEND Nurse Practitioner Adult Health
DX: C67.9 Malignant neoplasm of bladder, unspecified (principal); C79.82 Secondary malignant neoplasm of genital organs; G89.3 Neoplasm related pain (acute) (chronic); K59.89 Other specified functional intestinal disorders; R10.30 Lower abdominal pain, unspecified; R39.198 Other difficulties with micturition; N50.82 Scrotal pain; Z79.899 Other long term (current) drug therapy; Z88.1 Allergy status to other antibiotic agents; Z88.5 Allergy status to narcotic agent; Z88.2 Allergy status to sulfonamides; Z92.21 Personal history of antineoplastic chemotherapy; Z79.891 Long term (current) use of opiate analgesic; Z51.5 Encounter for palliative care; Z66 Do not resuscitate

== ENCOUNTER → 2022-08-14 | Outpatient (CLI) | payer OTHER ==
[~2022-08-14] VITALS: Ht 182.9 cm; Wt 85.8 kg
[~2022-08-14] MED LIST changes: +DULO30CA9 PO; +ENEMENE8 PR
[2022-08-14 13:40] VITALS: BP 115/79
== END ==
LOC: M PAL 13:33
PROVIDERS: ATTEND Nurse Practitioner Adult Health
DX: C67.9 Malignant neoplasm of bladder, unspecified (principal); C79.82 Secondary malignant neoplasm of genital organs; G89.3 Neoplasm related pain (acute) (chronic); Z51.5 Encounter for palliative care; R39.198 Other difficulties with micturition; Z66 Do not resuscitate; F32.A Depression, unspecified; F43.10 Post-traumatic stress disorder, unspecified; Z92.21 Personal history of antineoplastic chemotherapy; Z88.1 Allergy status to other antibiotic agents; Z88.2 Allergy status to sulfonamides; Z88.8 Allergy status to other drugs, medicaments and biological substances; Z79.891 Long term (current) use of opiate analgesic; Z79.899 Other long term (current) drug therapy

== ENCOUNTER → 2022-09-05 | Outpatient (CLI) | payer OTHER ==
[~2022-09-05] VITALS: Ht 182.9 cm; Wt 86.7 kg
[~2022-09-05] MED LIST changes: +DULO1CAP6 PO; +METH5TA PO
[2022-09-05 13:25] VITALS: BP 134/86
== END ==
LOC: M PAL 08:29
PROVIDERS: ATTEND Nurse Practitioner Adult Health
DX: C67.9 Malignant neoplasm of bladder, unspecified (principal); C79.82 Secondary malignant neoplasm of genital organs; G89.3 Neoplasm related pain (acute) (chronic); Z51.5 Encounter for palliative care; R39.198 Other difficulties with micturition; Z66 Do not resuscitate; F32.A Depression, unspecified; F43.10 Post-traumatic stress disorder, unspecified; Z92.21 Personal history of antineoplastic chemotherapy; Z88.1 Allergy status to other antibiotic agents; Z88.2 Allergy status to sulfonamides; Z79.891 Long term (current) use of opiate analgesic; Z88.8 Allergy status to other drugs, medicaments and biological substances; Z79.899 Other long term (current) drug therapy
CPT/HCPCS: 93005; G0463

== ENCOUNTER → 2022-09-05 | Outpatient (CLI) | payer OTHER | LOC: M ONCR 13:21 | PROVIDERS: ATTEND General Practice | DX: C61 Malignant neoplasm of prostate (principal); C79.51 Secondary malignant neoplasm of bone; Z85.51 Personal history of malignant neoplasm of bladder; Z79.1 Long term (current) use of non-steroidal anti-inflammatories (NSAID); Z79.891 Long term (current) use of opiate analgesic; Z79.899 Other long term (current) drug therapy; Z88.1 Allergy status to other antibiotic agents; Z88.2 Allergy status to sulfonamides; Z88.8 Allergy status to other drugs, medicaments and biological substances; Z92.3 Personal history of irradiation ==

== ENCOUNTER → 2022-09-18 | Outpatient (CLI) | payer OTHER ==
[~2022-09-18] VITALS: Ht 182.9 cm; Wt 86.0 kg
[2022-09-18 12:50] VITALS: BP 113/71
== END ==
LOC: M PAL 12:31
PROVIDERS: ATTEND Nurse Practitioner Adult Health
DX: C67.9 Malignant neoplasm of bladder, unspecified (principal); C79.82 Secondary malignant neoplasm of genital organs; G89.3 Neoplasm related pain (acute) (chronic); Z51.5 Encounter for palliative care; R39.198 Other difficulties with micturition; Z66 Do not resuscitate; F32.A Depression, unspecified; F43.10 Post-traumatic stress disorder, unspecified; Z92.21 Personal history of antineoplastic chemotherapy; F41.9 Anxiety disorder, unspecified; Z79.899 Other long term (current) drug therapy; Z79.891 Long term (current) use of opiate analgesic; Z88.2 Allergy status to sulfonamides; Z88.8 Allergy status to other drugs, medicaments and biological substances

== ENCOUNTER → 2022-10-04 | Outpatient (CLI) | payer OTHER ==
[~2022-10-04] VITALS: Ht 182.9 cm; Wt 86.4 kg
[2022-10-04 13:33] VITALS: BP 99/73
== END ==
LOC: M PAL 13:27
PROVIDERS: ATTEND Nurse Practitioner Adult Health
DX: C67.9 Malignant neoplasm of bladder, unspecified (principal); C79.82 Secondary malignant neoplasm of genital organs; G89.3 Neoplasm related pain (acute) (chronic); Z51.5 Encounter for palliative care; Z66 Do not resuscitate; R39.198 Other difficulties with micturition; F32.A Depression, unspecified; F43.10 Post-traumatic stress disorder, unspecified; Z92.21 Personal history of antineoplastic chemotherapy; Z88.1 Allergy status to other antibiotic agents; Z88.2 Allergy status to sulfonamides; Z79.891 Long term (current) use of opiate analgesic; Z88.8 Allergy status to other drugs, medicaments and biological substances; Z79.899 Other long term (current) drug therapy; F41.9 Anxiety disorder, unspecified; K59.00 Constipation, unspecified

== ENCOUNTER → 2022-11-06 | Outpatient (CLI) | payer OTHER | LOC: M ONCR 12:47 | PROVIDERS: ATTEND General Practice | DX: C61 Malignant neoplasm of prostate (principal); C79.51 Secondary malignant neoplasm of bone; Z79.1 Long term (current) use of non-steroidal anti-inflammatories (NSAID); Z79.891 Long term (current) use of opiate analgesic; Z79.899 Other long term (current) drug therapy; Z88.1 Allergy status to other antibiotic agents; Z88.2 Allergy status to sulfonamides; Z88.8 Allergy status to other drugs, medicaments and biological substances; Z85.51 Personal history of malignant neoplasm of bladder; Z92.3 Personal history of irradiation ==

== ENCOUNTER → 2022-11-06 | Outpatient (CLI) | payer OTHER ==
[~2022-11-06] VITALS: Ht 182.9 cm; Wt 86.2 kg
[2022-11-06 12:54] VITALS: BP 139/71
== END ==
LOC: M PAL 12:46
PROVIDERS: ATTEND Nurse Practitioner Adult Health
DX: C67.9 Malignant neoplasm of bladder, unspecified (principal); C79.82 Secondary malignant neoplasm of genital organs; G89.3 Neoplasm related pain (acute) (chronic); Z51.5 Encounter for palliative care; F32.A Depression, unspecified; F43.10 Post-traumatic stress disorder, unspecified; F41.9 Anxiety disorder, unspecified; Z92.21 Personal history of antineoplastic chemotherapy; Z88.1 Allergy status to other antibiotic agents; Z88.2 Allergy status to sulfonamides; Z79.891 Long term (current) use of opiate analgesic; Z79.899 Other long term (current) drug therapy

== ENCOUNTER 2022-11-23 13:41 | Outpatient (RCR) | payer OTHER ==
[~2022-11-23 13:41] MED LIST changes: +LORA1TAB23 PO; -LORA1TAB4 PO
== END 2022-12-02 ==
LOC: M ONCR 13:41
PROVIDERS: ATTEND General Practice
DX: C61 Malignant neoplasm of prostate (principal); C79.51 Secondary malignant neoplasm of bone

== ENCOUNTER → 2022-12-11 | Outpatient (CLI) | payer OTHER ==
[~2022-12-11] VITALS: Ht 182.9 cm; Wt 87.2 kg
[~2022-12-11] MED LIST changes: +GABA800T4 PO
[2022-12-11 13:53] VITALS: BP 114/75
== END ==
LOC: M PAL 13:31
PROVIDERS: ATTEND Nurse Practitioner Adult Health
DX: C67.9 Malignant neoplasm of bladder, unspecified (principal); C79.82 Secondary malignant neoplasm of genital organs; C79.51 Secondary malignant neoplasm of bone; G89.3 Neoplasm related pain (acute) (chronic); Z51.5 Encounter for palliative care; R26.89 Other abnormalities of gait and mobility; R29.6 Repeated falls; R35.1 Nocturia; K59.00 Constipation, unspecified; Z92.3 Personal history of irradiation; Z79.891 Long term (current) use of opiate analgesic; Z79.899 Other long term (current) drug therapy; Z88.1 Allergy status to other antibiotic agents; Z88.2 Allergy status to sulfonamides; Z88.8 Allergy status to other drugs, medicaments and biological substances; Z66 Do not resuscitate

== ENCOUNTER → 2023-01-08 | Outpatient (CLI) | payer OTHER ==
[~2023-01-08] VITALS: Ht 182.9 cm; Wt 89.3 kg
[~2023-01-08] MED LIST changes: +ATIV1TAB10 PO
[2023-01-08 13:07] VITALS: BP 135/82; TEMP 98.6; O2SAT 100
== END ==
LOC: M PAL 12:46
PROVIDERS: ATTEND Nurse Practitioner Adult Health
DX: C67.9 Malignant neoplasm of bladder, unspecified (principal); C79.82 Secondary malignant neoplasm of genital organs; C79.51 Secondary malignant neoplasm of bone; G89.3 Neoplasm related pain (acute) (chronic); Z51.5 Encounter for palliative care; R26.89 Other abnormalities of gait and mobility; R29.6 Repeated falls; R35.1 Nocturia; R32 Unspecified urinary incontinence; K59.00 Constipation, unspecified; Z92.3 Personal history of irradiation; Z79.891 Long term (current) use of opiate analgesic; Z79.899 Other long term (current) drug therapy; Z66 Do not resuscitate; Z88.1 Allergy status to other antibiotic agents; Z88.2 Allergy status to sulfonamides; Z88.8 Allergy status to other drugs, medicaments and biological substances

== ENCOUNTER 2023-01-30 14:33 | Inpatient (IN) | payer OTHER ==
[~2023-01-30] VITALS: Ht 182.9 cm; Wt 84.8 kg
[~2023-01-30 14:33] MED LIST changes: +VESI5TAB2 PO
[2023-01-30] MEDS ORDERED: OXYC-517 PO (14:47)
[2023-01-30] MEDS ORDERED: diazePAM 10MG/2ML SYRINGE IV ONE (15:25)
[2023-01-30 15:43] LABS: BASO % 0.5 % (0.0-1.0); EOS # 0.1 10^3/uL (0.0-0.5); EOS % 0.9 % (0.0-3.0); HEMATOCRIT 41.2 % (42.0-52.0); HEMOGLOBIN 14.3 g/dl (13.5-17.5); LYMPH # 1.3 10^3/uL (1.5-5.0); LYMPH % 22.2 % (24.0-44.0); MEAN CORPUSCULAR HEMOGLOBIN 29.9 pg (27.0-33.0); MEAN CORPUSCULAR HGB CONC 34.7 g/dl (32.0-36.5); MEAN CORPUSCULAR VOLUME 86.2 fl (80.0-96.0); MONO # 0.4 10^3/uL (0.0-0.8); MONO % 7.2 % (2.0-8.0); PLATELET COUNT, AUTOMATED 261 10^3/uL (150-450); RED BLOOD COUNT 4.78 10^6/uL (4.30-6.10); WHITE BLOOD COUNT 5.9 10^3/uL (4.0-10.0)
[2023-01-30 16:10] LABS: BLOOD UREA NITROGEN 13 MG/DL (9-23); CARBON DIOXIDE LEVEL 22 MMOL/L (20-31); CHLORIDE LEVEL 106 MMOL/L (98-107); CREATININE FOR GFR 0.81 MG/DL (0.70-1.30); GLOMERULAR FILTRATION RATE > 60.0 (>49); GLUCOSE, FASTING 100 MG/DL (74-106); POTASSIUM SERUM 4.2 MMOL/L (3.5-5.1); SODIUM LEVEL 136 MMOL/L (136-145)
[2023-01-30 16:12] LABS: THYROID STIMULATING HORMONE 0.817 uIU/ML (0.55-4.78)
[2023-01-30 16:22] LABS: RSV AMPLIFICATION NEGATIVE (NEGATIVE)
[2023-01-30] MEDS ORDERED: MED REC IN PROGRESS XX SCH (18:05)
[2023-01-30] MEDS ORDERED: ACETAMINOPHEN TAB 650MG DOSE (2X325MG) PO PRN (18:40)
[2023-01-30] MEDS ORDERED: ENEMENE8 PR (18:49)
[2023-01-30] MEDS ORDERED: DULO30CA47 PO (18:52)
[2023-01-30] MEDS ORDERED: DULO60CA35 PO (18:52)
[2023-01-30] MEDS ORDERED: METH5TA PO (19:07)
[2023-01-30] MEDS ORDERED: HOME MED LIST COMPLETE! XX SCH (19:20)
[2023-01-30] MEDS: dexAMETHasone 4 MG TAB PO SCH (19:46)
[2023-01-30] MEDS ORDERED: PILL CUTTER 1 EACH XX PRN (19:50)
[2023-01-30] MEDS: NS 1,000 ML IV SCH (19:50)
[2023-01-30 19:57] LABS: INR 1.1; PARTIAL THROMBOPLASTIN TIME 30.2 SECONDS (24.8-34.2); PROTHROMBIN TIME 14.4 SECONDS (12.5-14.5)
[2023-01-30] MEDS: LORazepam 1 MG TAB PO SCH (20:00)
[2023-01-30] MEDS: DULoxetine 30MG CAPSULE (CYMBALTA) PO SCH (20:00)
[2023-01-30] MEDS: GABAPENTIN 400MG CAP PO SCH (20:00)
[2023-01-30] MEDS ORDERED: DOCUSATE SOD LIQ 100MG/10ML UDC PO SCH (21:00)
[2023-01-30 21:30] VITALS: BP 143/82; TEMP 99.1; O2SAT 100
[2023-01-30] MEDS: METHADONE 5MG TAB PO SCH (21:58)
[2023-01-30] MEDS: MECLIZINE 25 MG TABLET PO PRN (21:59)
[2023-01-31] MEDS: MELOXICAM (MOBIC) 7.5 MG TAB PO SCH ×2 (01:26→20:50)
[2023-01-31] MEDS: oxyCODONE 5MG TAB PO PRN (03:33)
[2023-01-31] MEDS: MECLIZINE 25 MG TABLET PO PRN (03:33)
[2023-01-31 06:00] VITALS: BP 135/76; TEMP 98.4; O2SAT 97
[2023-01-31 06:03] LABS: HEMATOCRIT 37.8 % (42.0-52.0); HEMOGLOBIN 12.7 g/dl (13.5-17.5); MEAN CORPUSCULAR HEMOGLOBIN 29.6 pg (27.0-33.0); MEAN CORPUSCULAR HGB CONC 33.6 g/dl (32.0-36.5); MEAN CORPUSCULAR VOLUME 88.1 fl (80.0-96.0); PLATELET COUNT, AUTOMATED 241 10^3/uL (150-450); RED BLOOD COUNT 4.29 10^6/uL (4.30-6.10); WHITE BLOOD COUNT 5.3 10^3/uL (4.0-10.0)
[2023-01-31 06:18] LABS: ALBUMIN 3.8 G/DL (3.2-5.2); ALKALINE PHOSPHATASE 55 U/L (46-116); ALT/SGPT 14 U/L (7.0-40); AST/SGOT 13 U/L (<34); BILIRUBIN,TOTAL 0.7 MG/DL (0.3-1.2); BLOOD UREA NITROGEN 11 MG/DL (9-23); CALCIUM LEVEL 9.2 MG/DL (8.3-10.6); CARBON DIOXIDE LEVEL 24 MMOL/L (20-31); CHLORIDE LEVEL 108 MMOL/L (98-107); CREATININE FOR GFR 0.67 MG/DL (0.70-1.30); GLOMERULAR FILTRATION RATE > 60.0 (>49); GLUCOSE, FASTING 102 MG/DL (74-106); POTASSIUM SERUM 4.4 MMOL/L (3.5-5.1); SODIUM LEVEL 138 MMOL/L (136-145); TOTAL PROTEIN 6.2 G/DL (5.7-8.2)
[2023-01-31] MEDS: GABAPENTIN 400MG CAP PO SCH ×3 (08:47→20:50)
[2023-01-31] MEDS: DULoxetine 30MG CAPSULE (CYMBALTA) PO SCH ×2 (08:48→20:49)
[2023-01-31] MEDS: METHADONE 5MG TAB PO SCH ×3 (08:48→20:49)
[2023-01-31] MEDS: dexAMETHasone 4 MG TAB PO SCH (08:48)
[2023-01-31] MEDS: DOCUSATE SODIUM 100MG CAPSULE PO SCH ×3 (08:48→20:49)
[2023-01-31] MEDS: tiZANidine 4 MG TAB PO SCH ×2 (08:48→15:20)
[2023-01-31] MEDS: NS 1,000 ML IV SCH ×2 (08:51→19:40)
[2023-01-31] MEDS: ONDANSETRON 4MG 2ML VIAL IV PRN ×2 (08:51→13:45)
[2023-01-31] MEDS ORDERED: FLEET OIL RETENTION ENEMA PR SCH (09:00)
[2023-01-31] MEDS ORDERED: lamoTRIgine 100MG TAB PO SCH (09:00)
[2023-01-31] MEDS ORDERED: SENOKOT S TAB PO SCH (09:00)
[2023-01-31] MEDS ORDERED: PROHANCE 279.3MG/ML 5ML VIAL As Ordered ONE (14:21)
[2023-01-31] MEDS ORDERED: PROHANCE 279.3MG/ML 15ML VIAL As Ordered ONE (14:22)
[2023-01-31 17:00] VITALS: BP 142/83; TEMP 97.9; O2SAT 99
[2023-01-31] MEDS: lamoTRIgine 100MG TAB PO SCH (20:49)
[2023-01-31] MEDS: SENNA 8.6 MG TAB (SENOKOT) PO SCH (20:50)
[2023-01-31] MEDS: LORazepam 1 MG TAB PO SCH (20:50)
[2023-01-31 22:00] VITALS: BP 115/72; TEMP 97.9; O2SAT 97
[2023-02-01] MEDS: oxyCODONE 5MG TAB PO PRN ×2 (00:12→16:55)
[2023-02-01 05:25] VITALS: BP 114/69; TEMP 98.1; O2SAT 98
[2023-02-01 06:03] LABS: HEMATOCRIT 38.3 % (42.0-52.0); HEMOGLOBIN 12.7 g/dl (13.5-17.5); MEAN CORPUSCULAR HEMOGLOBIN 29.3 pg (27.0-33.0); MEAN CORPUSCULAR HGB CONC 33.2 g/dl (32.0-36.5); MEAN CORPUSCULAR VOLUME 88.5 fl (80.0-96.0); PLATELET COUNT, AUTOMATED 225 10^3/uL (150-450); RED BLOOD COUNT 4.33 10^6/uL (4.30-6.10); WHITE BLOOD COUNT 4.9 10^3/uL (4.0-10.0)
[2023-02-01 06:22] LABS: ALBUMIN 3.6 G/DL (3.2-5.2); ALKALINE PHOSPHATASE 57 U/L (46-116); ALT/SGPT < 9 U/L (7.0-40); AST/SGOT 13 U/L (<34); BILIRUBIN,TOTAL 0.6 MG/DL (0.3-1.2); BLOOD UREA NITROGEN 13 MG/DL (9-23); CALCIUM LEVEL 8.5 MG/DL (8.3-10.6); CARBON DIOXIDE LEVEL 28 MMOL/L (20-31); CHLORIDE LEVEL 107 MMOL/L (98-107); CREATININE FOR GFR 0.82 MG/DL (0.70-1.30); GLOMERULAR FILTRATION RATE > 60.0 (>49); GLUCOSE, FASTING 88 MG/DL (74-106); POTASSIUM SERUM 3.9 MMOL/L (3.5-5.1); SODIUM LEVEL 139 MMOL/L (136-145)
[2023-02-01] MEDS: DOCUSATE PR SCH (09:00)
[2023-02-01] MEDS: DOCUSATE SODIUM 100MG CAPSULE PO SCH ×3 (09:39→20:23)
[2023-02-01] MEDS: GABAPENTIN 400MG CAP PO SCH ×3 (09:40→20:23)
[2023-02-01] MEDS: tiZANidine 4 MG TAB PO SCH ×2 (09:40→14:53)
[2023-02-01] MEDS: METHADONE 5MG TAB PO SCH ×3 (09:40→20:23)
[2023-02-01] MEDS: dexAMETHasone 4 MG TAB PO SCH (09:40)
[2023-02-01] MEDS: diazePAM 10MG/2ML SYRINGE IV PRN ×2 (09:41→13:31)
[2023-02-01] MEDS: DULoxetine 30MG CAPSULE (CYMBALTA) PO SCH ×2 (09:41→20:23)
[2023-02-01 14:00] VITALS: BP 134/74; TEMP 97.5; O2SAT 98
[2023-02-01] MEDS: NS 1,000 ML IV SCH ×2 (14:48→20:40)
[2023-02-01] MEDS ORDERED: diphenhydrAMINE 50MG/ML VIAL IV PRN (19:20)
[2023-02-01] MEDS ORDERED: MAG SULF 1GM/100ML (MAG RUN) 1 GM in IV 1 EA IV ONE (19:20)
[2023-02-01] MEDS: MELOXICAM (MOBIC) 7.5 MG TAB PO SCH (20:21)
[2023-02-01] MEDS: LORazepam 1 MG TAB PO SCH (20:21)
[2023-02-01] MEDS: SENNA 8.6 MG TAB (SENOKOT) PO SCH (20:21)
[2023-02-01] MEDS: ONDANSETRON 4MG 2ML VIAL IV PRN (20:22)
[2023-02-01] MEDS: lamoTRIgine 100MG TAB PO SCH (20:22)
[2023-02-01] MEDS ORDERED: VALPROATE SOD INJ 1,000 MG in D5W 50 ML IV ONE (21:00)
[2023-02-01 21:20] VITALS: BP 126/74; TEMP 97.9; O2SAT 95
[2023-02-02 05:20] VITALS: BP 120/73; TEMP 98.1; O2SAT 96
[2023-02-02 06:12] LABS: HEMATOCRIT 36.9 % (42.0-52.0); HEMOGLOBIN 12.4 g/dl (13.5-17.5); MEAN CORPUSCULAR HEMOGLOBIN 29.7 pg (27.0-33.0); MEAN CORPUSCULAR HGB CONC 33.6 g/dl (32.0-36.5); MEAN CORPUSCULAR VOLUME 88.5 fl (80.0-96.0); PLATELET COUNT, AUTOMATED 208 10^3/uL (150-450); RED BLOOD COUNT 4.17 10^6/uL (4.30-6.10)
[2023-02-02 06:21] LABS: ALBUMIN 3.3 G/DL (3.2-5.2); ALKALINE PHOSPHATASE 53 U/L (46-116); ALT/SGPT 11 U/L (7.0-40); AST/SGOT < 8 U/L (<34); BILIRUBIN,TOTAL 0.4 MG/DL (0.3-1.2); BLOOD UREA NITROGEN 11 MG/DL (9-23); CARBON DIOXIDE LEVEL 28 MMOL/L (20-31); CHLORIDE LEVEL 106 MMOL/L (98-107); CREATININE FOR GFR 0.79 MG/DL (0.70-1.30); GLOMERULAR FILTRATION RATE > 60.0 (>49); GLUCOSE, FASTING 85 MG/DL (74-106); SODIUM LEVEL 141 MMOL/L (136-145); TOTAL PROTEIN 5.7 G/DL (5.7-8.2)
[2023-02-02 08:30] VITALS: BP 118/72; TEMP 98.1; O2SAT 97
[2023-02-02] MEDS: DOCUSATE PR SCH (08:45)
[2023-02-02] MEDS: GABAPENTIN 400MG CAP PO SCH (08:46)
[2023-02-02] MEDS: METHADONE 5MG TAB PO SCH (08:46)
[2023-02-02] MEDS: dexAMETHasone 4 MG TAB PO SCH (08:46)
[2023-02-02] MEDS: tiZANidine 4 MG TAB PO SCH (08:46)
[2023-02-02] MEDS: diazePAM 10MG/2ML SYRINGE IV PRN (08:47)
[2023-02-02] MEDS: DULoxetine 30MG CAPSULE (CYMBALTA) PO SCH (08:47)
[2023-02-02] MEDS: DOCUSATE SODIUM 100MG CAPSULE PO SCH (08:47)
[2023-02-02] MEDS: NS 1,000 ML IV SCH (09:10)
[2023-02-02] MEDS ORDERED: ACET1TAB55 PO (09:21)
[2023-02-02] MEDS ORDERED: BENA25CA4 PO (09:21)
[2023-02-02] MEDS ORDERED: VALI5TAB PO (09:21)
[2023-02-02] MEDS ORDERED: ONDA4TAB6 PO (09:21)
[2023-02-02] MEDS ORDERED: DEPA250T32 PO (09:21)
== END 2023-02-02 11:46 | disposition home health service (06) | DRG 54 ==
LOC: M ED 14:33 → M ED INP 18:40 → M MSPAV 21:27
PROVIDERS: ADMIT Internal Medicine; ATTEND Internal Medicine
DX: G43.909 Migraine, unspecified, not intractable, without status migrainosus (principal); G62.9 Polyneuropathy, unspecified; C61 Malignant neoplasm of prostate; C67.9 Malignant neoplasm of bladder, unspecified; N31.9 Neuromuscular dysfunction of bladder, unspecified; F32.A Depression, unspecified; F43.10 Post-traumatic stress disorder, unspecified; G89.3 Neoplasm related pain (acute) (chronic); F41.9 Anxiety disorder, unspecified; F44.81 Dissociative identity disorder; R29.6 Repeated falls; Z66 Do not resuscitate; Z83.3 Family history of diabetes mellitus; K59.09 Other constipation; Z79.899 Other long term (current) drug therapy; Z88.1 Allergy status to other antibiotic agents; Z88.2 Allergy status to sulfonamides; Z88.5 Allergy status to narcotic agent; Z88.8 Allergy status to other drugs, medicaments and biological substances; Z20.822 Contact with and (suspected) exposure to COVID-19

== ENCOUNTER → 2023-02-07 | Outpatient (CLI) | payer OTHER ==
[~2023-02-07] MED LIST changes: +ACET1TAB55 PO; +BENA25CA4 PO; +DEPA250T32 PO; +DULO30CA47 PO; +DULO60CA35 PO; +ONDA4TAB6 PO; +VALI5TAB PO
== END ==
LOC: M PAL 09:11
PROVIDERS: ATTEND Nurse Practitioner Family
DX: C67.9 Malignant neoplasm of bladder, unspecified (principal); C61 Malignant neoplasm of prostate; C79.51 Secondary malignant neoplasm of bone; G89.3 Neoplasm related pain (acute) (chronic); R42 Dizziness and giddiness; R26.89 Other abnormalities of gait and mobility; R53.83 Other fatigue; Z51.5 Encounter for palliative care; Z92.3 Personal history of irradiation; Z79.891 Long term (current) use of opiate analgesic; Z79.899 Other long term (current) drug therapy; Z88.1 Allergy status to other antibiotic agents; Z88.2 Allergy status to sulfonamides; Z88.8 Allergy status to other drugs, medicaments and biological substances

== ENCOUNTER → 2023-02-13 | Outpatient (CLI) | payer OTHER ==
[~2023-02-13] VITALS: Ht 177.8 cm; Wt 84.8 kg
[2023-02-13 09:15] VITALS: BP 111/67; O2SAT 95
== END ==
LOC: M ONCR 08:54
PROVIDERS: ATTEND General Practice
DX: C61 Malignant neoplasm of prostate (principal); C79.51 Secondary malignant neoplasm of bone; R42 Dizziness and giddiness; Z85.51 Personal history of malignant neoplasm of bladder; Z71.2 Person consulting for explanation of examination or test findings; Z79.891 Long term (current) use of opiate analgesic; Z79.899 Other long term (current) drug therapy; Z88.1 Allergy status to other antibiotic agents; Z88.2 Allergy status to sulfonamides; Z88.8 Allergy status to other drugs, medicaments and biological substances; Z92.3 Personal history of irradiation; Z96.0 Presence of urogenital implants

== ENCOUNTER → 2023-02-13 | Outpatient (CLI) | payer OTHER | LOC: M PAL 13:00 | PROVIDERS: ATTEND Nurse Practitioner Adult Health | DX: C61 Malignant neoplasm of prostate (principal); C79.51 Secondary malignant neoplasm of bone; G89.3 Neoplasm related pain (acute) (chronic); R42 Dizziness and giddiness; Z85.51 Personal history of malignant neoplasm of bladder; Z79.891 Long term (current) use of opiate analgesic; Z79.899 Other long term (current) drug therapy; Z88.1 Allergy status to other antibiotic agents; Z88.2 Allergy status to sulfonamides; Z92.3 Personal history of irradiation ==

== ENCOUNTER → 2023-03-06 | Outpatient (REF) | payer OTHER ==
[~2023-03-06] MED LIST changes: -AMIT25TA17 PO; +AMIT25TA19 PO
[2023-03-06 18:03] LABS: APPEARANCE, URINE CLEAR (CLEAR); BACTERIA, URINE AUTO 1+ (NEGATIVE); BILIRUBIN, URINE AUTO NEGATIVE (NEGATIVE); BLOOD, URINE BLOOD NEGATIVE (NEGATIVE); COLOR, URINE STRAW (YELLOW); GLUCOSE, URINE (UA) AUTO NEGATIVE (NEGATIVE); KETONE, URINE AUTO NEGATIVE (NEGATIVE); LEUKOCYTE ESTERASE, URINE AUTO 1+ (NEGATIVE); NITRITE, URINE AUTO NEGATIVE (NEGATIVE); PROTEIN, URINE AUTO NEGATIVE (NEGATIVE); RBC, URINE AUTO 0 /HPF (0-3); SPECIFIC GRAVITY URINE AUTO 1.006 (1.002-1.035); SQUAMOUS EPITHELIAL CELL UR AU 0 /HPF (0-6); UROBILINOGEN, URINE AUTO 0.2 mg/dL (0.0-2.0); WBC, URINE AUTO 8 /HPF (0-3)
== END ==
LOC: EEVIPCON 16:56 → M SMT 16:56
PROVIDERS: ATTEND Urology
DX: R39.198 Other difficulties with micturition (principal)

== ENCOUNTER → 2023-03-20 | Outpatient (REF) | payer OTHER ==
[2023-03-20 13:34] LABS: APPEARANCE, URINE CLEAR (CLEAR); BACTERIA, URINE AUTO NEGATIVE (NEGATIVE); BILIRUBIN, URINE AUTO NEGATIVE (NEGATIVE); BLOOD, URINE BLOOD NEGATIVE (NEGATIVE); COLOR, URINE YELLOW (YELLOW); GLUCOSE, URINE (UA) AUTO NEGATIVE (NEGATIVE); KETONE, URINE AUTO NEGATIVE (NEGATIVE); LEUKOCYTE ESTERASE, URINE AUTO NEGATIVE (NEGATIVE); MUCUS, URINE SMALL (NEGATIVE); NITRITE, URINE AUTO NEGATIVE (NEGATIVE); PROTEIN, URINE AUTO NEGATIVE (NEGATIVE); RBC, URINE AUTO 0 /HPF (0-3); SPECIFIC GRAVITY URINE AUTO 1.015 (1.002-1.035); SQUAMOUS EPITHELIAL CELL UR AU 0 /HPF (0-6); UROBILINOGEN, URINE AUTO 0.2 mg/dL (0.0-2.0); WBC, URINE AUTO 0 /HPF (0-3)
== END ==
LOC: M SMT 12:54
PROVIDERS: ATTEND Urology
DX: N39.0 Urinary tract infection, site not specified (principal)

== ENCOUNTER → 2023-03-20 | Outpatient (CLI) | payer OTHER ==
[~2023-03-20] VITALS: Ht 182.9 cm; Wt 83.4 kg
[2023-03-20 09:36] VITALS: BP 102/76; TEMP 96; O2SAT 100
== END ==
LOC: M PAL 09:24
PROVIDERS: ATTEND Nurse Practitioner Adult Health
DX: C67.9 Malignant neoplasm of bladder, unspecified (principal); C79.82 Secondary malignant neoplasm of genital organs; C79.51 Secondary malignant neoplasm of bone; G89.3 Neoplasm related pain (acute) (chronic); Z51.5 Encounter for palliative care; G62.9 Polyneuropathy, unspecified; R42 Dizziness and giddiness; R26.89 Other abnormalities of gait and mobility; R29.6 Repeated falls; R53.83 Other fatigue; Z66 Do not resuscitate; Z79.1 Long term (current) use of non-steroidal anti-inflammatories (NSAID); Z79.891 Long term (current) use of opiate analgesic; Z88.1 Allergy status to other antibiotic agents; Z88.2 Allergy status to sulfonamides; Z88.8 Allergy status to other drugs, medicaments and biological substances; Z92.3 Personal history of irradiation